=== PATIENT | male | born 1965 | race Caucasian/White ===

== ENCOUNTER 2018-12-25 08:08 | Day surgery (SDC) | payer OTHER ==
[~2018-12-25 08:08] MED LIST: CEFAZOLIN 2 GM/50 ML (PMX) 50 ML IVPB
[2018-12-25 10:43] LABS: ADD MAN DIFF? NO
[2018-12-25 10:46] LABS: WHITE BLOOD COUNT 7.4 10^3/ul (4.8-10.8)
[2018-12-25 10:46] LABS: BASOPHIL # 0.1 10^3/ul (0.0-0.1); BASOPHILS % 1.1 % (0.0-2.0); EOSINOPHILS # 0.3 10^3/ul (0.0-0.5); EOSINOPHILS % 4.6 % (0.0-7.0); HEMATOCRIT 44.4 % (42.0-52.0); HEMOGLOBIN 14.8 g/dl (14.0-18.0); LYMPHOCYTES % 26.9 % (15.0-51.0); MEAN CORPUSCULAR HEMOGLOBIN 29.4 pg (29.0-33.0); MEAN CORPUSCULAR HGB CONC 33.3 g/dl (32.0-37.0); MEAN CORPUSCULAR VOLUME 88.3 fl (82.0-101.0); MEAN PLATELET VOLUME 8.8 fl (7.4-10.4); MONOCYTE # 0.7 10^3/ul (0.3-0.9); MONOCYTES % 8.7 % (0.0-11.0); NEUTROPHIL # 4.3 10^3/ul (1.6-7.5); PLATELET COUNT 221 10^3/UL (140-415); RED BLOOD COUNT 5.03 10^6/ul (4.70-6.10); RED CELL DISTRIBUTION WIDTH 12.1 % (11.5-14.5)
[2018-12-25] MEDS: LACTATED RINGER'S 1,000 ML IV (10:46)
[2018-12-25 11:06] LABS: INR 0.92; PROTIME 12.5 Sec (11.9-14.9)
[2018-12-25 11:07] LABS: PARTIAL THROMBOPLASTIN TIME 28.9 Sec (23.0-35.0)
[2018-12-25 11:08] LABS: ALANINE AMINOTRANSFERASE 97 IU/L (13-69); ALBUMIN 4.6 g/dl (3.3-4.9); ALBUMIN/GLOBULIN RATIO 1.35; ALKALINE PHOSPHATASE 80 IU/L (42-121); ANION GAP 9 (5-13); ASPARTATE AMINO TRANSFERASE 43 IU/L (15-46); BILIRUBIN,INDIRECT 0.8 mg/dl (0-1.1); BILIRUBIN,TOTAL 0.8 mg/dl (0.2-1.3); BLOOD UREA NITROGEN 11 mg/dl (7-20); CALCIUM 9.6 mg/dl (8.4-10.2); CARBON DIOXIDE 29 mmol/L (21-31); CHLORIDE 103 mmol/L (97-110); CREATININE 1.23 mg/dl (0.61-1.24); Estimated GFR > 60 mL/min (>60); GLUCOSE 103 mg/dl (70-220); POTASSIUM 4.5 mmol/L (3.5-5.1); SODIUM 141 mmol/L (135-144)
[2018-12-25] MEDS ORDERED: ROCURONIUM 50 MG INJ (11:52)
[2018-12-25] MEDS ORDERED: PHENYLephrine (100 MCG/ML) 10ML SYG (11:52)
[2018-12-25] MEDS ORDERED: MIDAZOLAM 1 MG/ML 2 ML INJ (11:52)
[2018-12-25] MEDS ORDERED: DESFLURANE 15 MIN (11:52)
[2018-12-25] MEDS ORDERED: CEFAZOLIN 1 GM INJ (11:52)
[2018-12-25] MEDS ORDERED: FENTAnyl 50 MCG/ML VIAL (11:52)
[2018-12-25] MEDS ORDERED: PROPOFOL 20 ML (11:52)
[2018-12-25] MEDS ORDERED: EPHEDrine 25 MG/5 ML SYG IV (12:00)
[2018-12-25] MEDS ORDERED: HYDROmorphONE 1 MG/5 ML IV SYRINGE IV ×2 (12:00)
[2018-12-25] MEDS ORDERED: ONDANSETRON 4 MG INJ IV (12:00)
[2018-12-25] MEDS ORDERED: FENTAnyl 50 MCG/ML VIAL IV (12:00)
[2018-12-25] MEDS ORDERED: DEXAMETHASONE 4 MG/ML 5 ML INJ (12:33)
[2018-12-25] MEDS ORDERED: METOCLOPRAMIDE 10 MG INJ (12:33)
[2018-12-25] MEDS ORDERED: ONDANSETRON 4 MG INJ (12:33)
[2018-12-25] MEDS: IOHEXOL 300MG/ML 30 ML BTL (12:36)
[2018-12-25] MEDS ORDERED: GLYCOPYRROLATE 0.4 MG INJ (12:44)
[2018-12-25] MEDS ORDERED: NEOSTIGMINE 3 MG/3 ML SYRINGE (12:44)
[2018-12-25] MEDS: FENTAnyl 50 MCG/ML VIAL IV ×2 (13:11→13:25)
== END 2018-12-25 15:10 | disposition home or self-care (01) ==
LOC: SDS 08:08
DX: N35.919 Unspecified urethral stricture, male, unspecified site (principal); I10 Essential (primary) hypertension; E03.9 Hypothyroidism, unspecified; E66.01 Morbid (severe) obesity due to excess calories; Z68.39 Body mass index [BMI] 39.0-39.9, adult
CPT/HCPCS: 52276; 74430; 80053; 85025; 85610; 85730